=== PATIENT | female | born 1980 | race Caucasian/White ===

== ENCOUNTER 2016-06-27 00:17 | Emergency (ER) | payer MEDICAID ==
[2016-06-27] MEDS ORDERED: Ketorolac 60 MG/2 ML SDV IM ONE (01:01)
--- NOTE | 2016-06-27 01:24 | EDM.PDOC ---
ED HPI LOWER BACK PAIN/INJURY - General Chief Complaint: Flank Pain Stated Complaint: KIDNEY INFICTION Time Seen by Provider: 06/27/16 00:32 Source: Reports: Patient History Limitations: Reports: No limitations - History of Present Illness INITIAL COMMENTS - FREE TEXT/NARRATIVE: 35 years old w f came to the ed with taxi due to left lower back pain. Pt was seen in the clinic last week when she was diagnosed with a bladder infection. Pt was on cipro. Pt denied trauma. Pt is allegic to Motrin and ultram carlson not work. No N/V/D. Pt has Renauds syndrome, Symptom Onset Date: 06/20/16 Symptom Onset Time: 01:25 Timing/Duration: Reports: Day(s): Location: Reports: paraspinal (left) Quality: Reports: Ache, Burning, Same as previous episode Improves with: Reports: None Worsens with: Reports: None Associated Symptoms: Reports: Denies symptoms, Other (cipro) - Related Data Allergies/ADRs: Allergies Allergy/AdvReac Type Severity Reaction Status Date / Time No Known Allergies Allergy Verified 06/27/16 00:25 Home Meds: Home Meds ALPRAZolam [Xanax] 0.5 mg PO BEDTIME PRN #2 tablet 05/24/16 [Rx] Escitalopram [Lexapro] 1 tab PO DAILY 05/24/16 [History] Lurasidone [Latuda] 20 mg PO BEDTIME 05/24/16 [History] QUEtiapine [SEROquel] 1 tab PO DAILY 05/24/16 [History] Past Medical History Genitourinary History: Reports: UTI, recurrent Social & Family History - Tobacco Use Smoking Status *Q: Current Every Day Smoker Years of Tobacco use: 15 Packs/Tins Daily: 1 Used Tobacco, but Quit: No Second Hand Smoke Exposure: Yes - Caffeine Use Caffeine Use: Reports: None - Recreational Drug Use Recreational Drug Use: No ED ROS GENERAL - Review of Systems Review Of Systems: See Below Constitutional: Reports: no symptoms HEENT: Reports: No symptoms Respiratory: Reports: no symptoms Endocrine: Reports: no symptoms GI/Abdominal: Reports: Other (lefty lower back pain) : Reports: no symptoms Musculoskeletal: Reports: no symptoms Skin: Reports: no symptoms Neurological: Reports: no symptoms Hematologic/Lymphatic: Reports: no symptoms Immunologic: Reports: no symptoms ED EXAM,LOWER BACK PAIN/INJURY - Physical Exam Exam: See Below Exam Limited By: No limitations General Appearance: alert, WD/WN, mild distress Ears: normal external exam, normal canal, hearing grossly normal, normal TMs Nose: normal inspection, normal mucosa, no blood Throat/Mouth: Normal inspection, Normal lips, Normal teeth, Normal gums, Normal oropharynx, Normal voice, No airway compromise Head: atraumatic, normocephalic Neck: normal inspection, supple, non-tender, full range of motion Respiratory/Chest: no respiratory distress, lungs clear, normal breath sounds, no accessory muscle use, chest non-tender Cardiovascular: normal peripheral pulses, regular rate, rhythm, no edema, no gallop, no JVD, no murmur, no rub GI/Abdominal: normal bowel sounds, soft, non tender, no organomegaly, no distention, no abnormal bruit, no mass (Female) Exam: Deferred Rectal (Female) Exam: Deferred Back Exam: normal inspection, full range of motion, CVA tenderness (L) Extremities: normal inspection, normal range of motion, non-tender, no pedal edema, normal capillary refill Neurological: alert, normal mood/affect, normal dorsiflexion, CN II-XII intact, normal plantar flexion, normal gait, normal reflexes, no motor/sensory deficits , oriented x 3 Psychiatric: normal affect, normal mood Skin Exam: Warm, Dry, Intact, Normal color, No rash Lymphatic: no adenopathy Course - Vital Signs Text/Narrative:: 35 years old w f came to the ed with taxi due to left lower back pain. Pt was seen in the clinic last week when she was diagnosed with a bladder infection. Pt was on cipro. Pt denied trauma. Pt is allegic to Motrin and ultram carlson not work. No N/V/D. Pt has Renauds syndrome, PE: Nasal congestion Left lower back pain Labs: HCG neg UA neg for UTI Imaging: CT Abd. pelvis neg Tx: Vicodin Reexam: Improved Plan: D/C with instructions Last Recorded V/S: Last Vital Signs Temp 36.8 C 06/27/16 01:29 Pulse 83 06/27/16 01:29 Resp 18 06/27/16 01:29 BP 110/65 06/27/16 01:29 Pulse Ox 100 06/27/16 01:29 - Orders/Labs/Meds Labs: Laboratory Tests 06/27/16 06/27/16 Range/Units 00:26 00:26 Urine Color Yellow (YELLOW) Urine Appearance Slightly cloudy (CLEAR) Urine pH 6.0 (5.0-6.5) Ur Specific [place] 1.015 (1.010-1.025) Urine Protein Negative (NEGATIVE) mg/dL Urine Glucose (UA) Normal (NEGATIVE) mg/dL Urine Ketones Negative (NEGATIVE) mg/dL Urine Occult Blood Negative (NEGATIVE) Urine Nitrite Negative (NEGATIVE) Urine Bilirubin Negative (NEGATIVE) Urine Urobilinogen Normal (NEGATIVE) mg/dL Ur Leukocyte Esterase Negative (NEGATIVE) Urine RBC 0-5 (0) Urine WBC 0-5 (0) Ur Squamous Epith Cells Moderate H (NS,R,O) Urine Bacteria Moderate H (NS) Urine HCG, Qual Negative (NEGATIVE) Meds: Medications Discontinued Medications Generic Name Dose Route Start Last Admin Trade Name Freq PRN Reason Stop Dose Admin Ketorolac Tromethamine 60 mg 06/27/16 01:01 06/27/16 01:11 Toradol IM 06/27/16 01:02 60 mg ONETIME ONE Administration Departure - Departure Time of Disposition: 01:32 Disposition: Home, Self-Care 01 Condition: good Clinical Impression: Back pain Referrals: PCP,None [Primary Care Provider] - Forms: ED Department Discharge Additional Instructions: please take Vicodin for severe pain. please f/u, please came back to the ed if symptoms get worse acutely
[2016-06-27] MEDS ORDERED: Acetaminophen/HYDROcodone 325-5 MG Tab PO ONE (01:27)
[2016-06-27 01:30] VITALS: BP 110/65
== END 2016-06-27 01:35 | disposition home or self-care (01) ==
LOC: FB.ED 00:17
DX: M54.5 Low back pain (principal); F17.210 Nicotine dependence, cigarettes, uncomplicated; Z79.899 Other long term (current) drug therapy
CPT/HCPCS: 74176; 81001; 81025; 96372; 99284; J1885; A9270-GY

== ENCOUNTER 2016-11-30 20:23 | Emergency (ER) | payer MEDICAID ==
[2016-11-30] MEDS ORDERED: Meperidine PF 50 MG/ML Syringe IM ONE (21:06)
[2016-11-30] MEDS ORDERED: Cyclobenzaprine 10 MG Tab PO ONE (21:35)
[2016-11-30] MEDS ORDERED: Acetaminophen/Codeine 300-30 MG Tab PO ONE (21:35)
[2016-11-30 23:49] VITALS: BP 116/75
--- NOTE | 2016-12-01 01:51 | ER ---
DATE SEEN: 11/30/2016 CHIEF COMPLAINT: Back pain. HISTORY OF PRESENT ILLNESS: Harper is a 36-year-old female with chronic back pain. She presents with pain that started 2 days ago, feels like it is radiating to the sacrum moderate to severe, nothing seems to help. She has had an injection to the lower lumbar spine joints with no improvement previously. REVIEW OF SYSTEMS: No weakness of the legs. No urinary symptoms. No recent fever or chills. ALLERGIES: She complains of being allergic to Toradol and ibuprofen. MEDICATIONS: Seroquel, Latuda, Lexapro, and Xanax. PHYSICAL EXAMINATION: GENERAL: She is a well-nourished female, who is not in distress. VITAL SIGNS: She has normal vital signs. BACK: Low back did not show any signs of deformity. There was tenderness to palpation of the sacral spine and SI joint. Normal range of motion of the hip and normal gait and station. IMPRESSION: Chronic back pain with acute exacerbation. PLAN: Demerol 50 mg x1 and then I prescribed Tylenol No. 3 one tablet t.i.d. p.r.n. and 10 mg of Flexeril at night. I recommended she be seen next week and return to the ED with any worsening symptoms. TIME SEEN: 8 p.m. /[id number] TONY/GENI
== END 2016-11-30 21:45 | disposition home or self-care (01) ==
LOC: FB.ED 20:23
DX: M54.5 Low back pain (principal); G89.29 Other chronic pain
CPT/HCPCS: 96372; 99282; J2175; A9270-GY

== ENCOUNTER 2016-12-05 21:15 | Emergency (ER) | payer MEDICAID ==
[2016-12-05] MEDS ORDERED: HYDROmorphone 2 MG/ML SDV IM ONE (21:39)
[2016-12-05] MEDS ORDERED: HYDROmorphone 2 MG/ML SDV IVPUSH ONE (21:45)
[2016-12-05 22:19] VITALS: BP 97/61
--- NOTE | 2016-12-06 00:51 | ER ---
DATE SEEN: 12/05/2016 COMPLAINT: Back pain. HISTORY OF PRESENT ILLNESS: This is a 36-year-old female with a chronic back pain. I saw her last week for the same symptoms. She was in the ER on the 11/29/2016 in [place] because of tooth pain. She has exhibited pain seeking behavior in the past. I saw her in the clinic in June for a wrist pain and wanted narcotics. Her pain is in the back, she says it goes down the leg, has been seen at the [facility] and offered nerve blocks which did not help. She does not want to go through with the epidural injection. REVIEW OF SYSTEMS: No fever or urinary symptoms. Denies any weakness of the legs. MEDICATIONS: Please see the nurse's notes. ALLERGIES: She is allergic to ibuprofen, ketorolac and banana. PHYSICAL EXAMINATION: VITAL SIGNS: Her blood pressure is 84/49, she weighs 115 pounds. Temperature 98.1. LOWER BACK: No obvious swelling. There is tenderness on the right and left buttock and the paraspinal muscle in the lumbar area. MENTAL STATUS: Alert. Normal affect. The or fiancee talks for her mostly. IMPRESSION: Chronic back pain. PLAN: I reviewed the [place] chart and noted that she had been seen in the ER on 11/29/2016, also noted she had an MRI in 2014 for back pain and has been going to the Pain [facility]. I gave her Dilaudid 1 mg IM. I advised her to have an MRI next week and follow up next week with PCP or with the Pain [facility]. I did not send her home on any oral narcotics. /[id number] TONY/GENI
== END 2016-12-05 22:15 | disposition home or self-care (01) ==
LOC: FB.ED 21:15
DX: G89.29 Other chronic pain (principal); M54.5 Low back pain; Z88.6 Allergy status to analgesic agent
CPT/HCPCS: 96374; 99283; J1170

== ENCOUNTER 2016-12-08 18:16 | Emergency (ER) | payer MEDICAID ==
[2016-12-08 18:37] VITALS: BP 118/81
[2016-12-08] MEDS ORDERED: Metoclopramide 10 MG/2 ML SDV IM ONE (19:13)
[2016-12-08] MEDS ORDERED: hydrOXYzine HCl 50 MG/ML SDV IM ONE (19:13)
[2016-12-08] MEDS ORDERED: diphenhydrAMINE 50 MG/ML SDV IM ONE (19:14)
--- NOTE | 2016-12-13 11:20 | ER ---
DATE SEEN: 12/08/2016 HISTORY OF PRESENT ILLNESS: The patient complains that she is not getting much relief from medicines she got for back pain. She was seen on , on the for chronic low back pain, and has an MRI scheduled for tomorrow 12/09/2016. She also was seen 11/29/2016 at [facility] for tooth pain. There is a note that she has tendency to seek pain medicine. The patient states, until a week ago, she was lifting weight and was active. She is asthenic woman. She had an MRI in 2014 also. ALLERGIES: She is allergic to Toradol and ibuprofen. She has had a shot of Demerol, Tylenol No. 3, and Flexeril prescribed on , the last clinic date by Dr. Mckeon. She said I got relief, but the pain does came back. The patient points to the right sacroiliac joint, which is greater than left sacroiliac joint, has less discomfort in the lumbar bones. She has moderate superior iliac crest discomfort to the right compared to the left. Straight leg raise is suggestive but not overtly positive on the right or left leg. No dysesthesia in lower extremities. Deep tendon reflexes, knee jerks, ankle jerks are in place. No hypoesthesia of lower extremities. She is asthenic woman, who has decreased subcutaneous fat and quite thin. Abdominal exam is without tenderness. No guarding or rebound. Lungs are clear to auscultation. Heart: S1, S2. No murmur. Abdomen is negative. Chest wall is negative. She has multiple piercings. Deep tendon reflexes in upper and lower extremities symmetrical 1+ normoactive. Cranial nerves 2 through 12 intact. No dysesthesia in lower extremities. ASSESSMENT: Bilateral right greater than left sacroiliac joint discomfort. She has an MRI to be performed tomorrow. If she has arthritis, make sure to open this, but otherwise I think clinically could be injected. As a person who has had sacroiliac joint injections, it is instrumental and helpful, and perhaps Dr. Mckeon would be able arrange this and/or patient arrange it through the [facility]. At this point, I am not impressed with the history that she had epidurals that apparently have not been effective for her. I await the results of the MRI before making judgement regarding degenerative disk disease and/or degenerative disease or apophyseal abnormalities. She is quite young and asthenic, so it would seem low probability she had significant disk disease at this point. On 06/27/2016, she had CT of the abdomen and pelvis without contrast, and there was minimal basilar lung atelectasis/fibrosis, vascular structures normal, bones showed mild degenerative disease in lumbosacral junction. No acute abnormality noted. IUD within uterus noted. 1. Before making judgment of the extent of lower back disease at this point, I will await MRI. 2. She has sacroiliac joint pain right greater than left. Injection would be helpful. Pain Clinic could do this nicely. 3. Plan, the patient is "allergic to Toradol and ibuprofen", consequently will be given a shot of Vistaril and Reglan and dismissed with Robaxin 750 mg 60 tablets 1 q.i.d. p.r.n. spasm. I chose not to use narcotics, and the patient is made aware that I was worried about her narcotic rebound effect. Also it is interesting that she was weightlifting until a week or so ago, so my feeling is it is probably not disk disease, there have been annotations that perhaps she was seeking pain medicines, and at this point, she was comfortable with the plan that I am not using narcotics this evening. That was gratifying. The patient was seen at 1848 hours. /[id number] KENDELL/GENI
== END 2016-12-08 19:45 | disposition home or self-care (01) ==
LOC: FB.ED 18:16
DX: M53.3 Sacrococcygeal disorders, not elsewhere classified (principal); Z88.6 Allergy status to analgesic agent
CPT/HCPCS: 99283; J1200; J2765; 96372

== ENCOUNTER 2017-01-02 16:19 | Emergency (ER) | payer MEDICAID ==
--- NOTE | 2017-01-02 17:24 | EDM.PDOC ---
ED HPI GENERAL MEDICAL PROBLEM - General Chief Complaint: Back Pain or Injury Stated Complaint: BACK PAIN Time Seen by Provider: 01/02/17 17:00 Source of Information: Reports: Patient History Limitations: Reports: No Limitations - History of Present Illness INITIAL COMMENTS - FREE TEXT/NARRATIVE: Harper comes to [facility] ED with ongoing issues of chronic low back pain. 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 Pain originates in the lower back adjacent to pelvic brim, with some numbness in both legs. Analgesic meds including Lyrica have been ineffective. - Related Data Allergies Allergy/AdvReac Type Severity Reaction Status Date / Time banana Allergy Nausea and Verified 12/08/16 19:59 Vomiting ibuprofen Allergy Rash Verified 12/08/16 19:59 ketorolac [From Toradol] Allergy Rash Verified 12/08/16 19:59 Home Meds: Home Meds ALPRAZolam [Xanax] 0.5 mg PO BEDTIME PRN #2 tablet 05/24/16 [Rx] Escitalopram [Lexapro] 1 tab PO DAILY 05/24/16 [History] Lurasidone [Latuda] 40 mg PO BEDTIME 05/24/16 [History] QUEtiapine [SEROquel] 2 tab PO DAILY 05/24/16 [History] Acetaminophen [Tylenol] 325 tab PO Q4HR PRN 11/30/16 [History] Albuterol [IJD: Albuterol HFA] 1 puff INH ASDIRECTED 11/30/16 [History] Dextroamphetamine/Amphetamine [Adderall Xr 30 mg Capsule] 1 tab PO DAILY [History] Fluticasone Propionate [Flonase] 1 spray DEANA ASDIRECTED 11/30/16 [History] Gabapentin [Neurontin] 3 cap PO DAILY 11/30/16 [History] Loratadine [Claritin] 1 tab PO ASDIRECTED 11/30/16 [History] lamoTRIgine [Lamictal] 1 tab PO DAILY 11/30/16 [History] Methocarbamol [Robaxin-750] 750 mg PO QID PRN #60 tablet 12/08/16 [Rx] Carisoprodol [Soma] 250 mg PO QID #30 tablet 01/02/17 [Rx] Past Medical History HEENT History: Reports: Other (See Below) Other HEENT History: Patient reports taking Claritin and Flonase. Respiratory History: Reports: Other (See Below) Other Respiratory History: Patient reports taking Albuterol. 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 Patient reports taking Gabapentin. Neurological History: Reports: Other (See Below) Psychiatric History: Reports: Other (See Below) Other Psychiatric History: Patient reports taking Adderall, Latuda, and Seroquel. - Past Surgical History Musculoskeletal Surgical History: Reports: Other (See Below) Other Musculoskeletal Surgeries/Procedures:: Patient reports having injections to her back and a surgery to repair a broken wrist. Social & Family History - Tobacco Use Smoking Status *Q: Current Every Day Smoker Years of Tobacco use: 15 Packs/Tins Daily: 1 Used Tobacco, but Quit: No Second Hand Smoke Exposure: Yes - Caffeine Use Caffeine Use: Reports: None - Recreational Drug Use Recreational Drug Use: No ED ROS GENERAL - Review of Systems Review Of Systems: ROS reveals no pertinent complaints other than HPI. ED EXAM,LOWER BACK PAIN/INJURY - Physical Exam Exam: See Below Exam Limited By: No Limitations General Appearance: Alert, WD/WN, No Apparent Distress Head: Normocephalic Neck: Normal Inspection, Supple, Non-Tender, Full Range of Motion Respiratory/Chest: Lungs Clear, Normal Breath Sounds Cardiovascular: Regular Rate, Rhythm GI/Abdominal: Normal Bowel Sounds, Soft, Non-Tender, No Organomegaly, No Distention Back Exam: Paraspinal Tenderness (L5 to SI joints, neg SN tenderness; guarded with movement) Extremities: Normal Inspection, Normal Range of Motion, Non-Tender, Normal Capillary Refill Neurological: Alert, Normal Dorsiflexion, CN II-XII Intact, Normal Plantar Flexion, Normal Reflexes, No Motor/Sensory Deficits, Oriented x 3 Psychiatric: Depressed Mood, Tearful Skin Exam: Warm, Dry Lymphatic: No Adenopathy Course - Vital Signs Text/Narrative:: Harper remained stable at the [facility] ED. No meds were administered. Departure - Departure Time of Disposition: 17:26 Disposition: Home, Self-Care 01 Condition: Fair Clinical Impression: Back pain Qualifiers: Back pain location: low back pain Chronicity: chronic Back pain laterality: bilateral Sciatica presence: without sciatica Qualified Code(s): M54.5 - Low back pain; G89.29 - Other chronic pain - Discharge Information Referrals: PCP,Not In Area [Primary Care Provider] - Forms: ED Department Discharge - Problem List & Annotations (1) Back pain SNOMED Code(s): 844949606 Code(s): M54.9 - DORSALGIA, UNSPECIFIED Status: Acute Current Visit: Yes Annotation/Comment:: Chronic low back, awaiting appointment with channel marketing specialist. I dispensed Soma 250 mg qid pending appointment. Qualifiers: Back pain location: low back pain Chronicity: chronic Back pain laterality: bilateral Sciatica presence: without sciatica Qualified Code(s) : M54.5 - Low back pain; G89.29 - Other chronic pain - Problem List Review Problem List Initiated/Reviewed/Updated: Yes - Assessment/Plan Plan: Follow up with channel marketing specialist.
[2017-01-02 19:51] VITALS: BP 104/71
== END 2017-01-02 17:40 | disposition home or self-care (01) ==
LOC: FB.ED 16:19
DX: M54.5 Low back pain (principal); G89.29 Other chronic pain; M19.90 Unspecified osteoarthritis, unspecified site; F17.210 Nicotine dependence, cigarettes, uncomplicated; Z87.440 Personal history of urinary (tract) infections; Z98.890 Other specified postprocedural states; Z79.899 Other long term (current) drug therapy; Z88.6 Allergy status to analgesic agent; Z88.8 Allergy status to other drugs, medicaments and biological substances; Z91.018 Allergy to other foods
CPT/HCPCS: 99283

== ENCOUNTER 2017-01-11 10:05 | Emergency (ER) | payer MEDICAID ==
[2017-01-11] MEDS ORDERED: Sodium Chloride 0.9% 1,000 ML IV ONE (12:04)
[2017-01-11] MEDS ORDERED: Ondansetron 4 MG/2 ML SDV IVPUSH ONE (12:05)
[2017-01-11] MEDS ORDERED: methylPREDNISolone Sodium Succinate 500 MG/4 ML SDV IVPUSH ONE (12:05)
[2017-01-11] MEDS ORDERED: diphenhydrAMINE 50 MG/ML SDV IVPUSH ONE (12:06)
[2017-01-11] MEDS ORDERED: methylPREDNISolone Sodium Succinate 125 MG/2 ML SDV ONE ×2 (12:29→12:39)
[2017-01-11] MEDS ORDERED: traMADol 50 MG Tab PO ONE (13:38)
[2017-01-11] MEDS ORDERED: predniSONE 10 MG Tab PO ONE (13:38)
--- NOTE | 2017-01-11 14:35 | EDM.PDOC ---
ED HPI GENERAL MEDICAL PROBLEM - General Chief Complaint: Back Pain or Injury Stated Complaint: BACK PAIN Time Seen by Provider: 01/11/17 10:25 Source of Information: Reports: Patient, Family History Limitations: Reports: No Limitations - History of Present Illness INITIAL COMMENTS - FREE TEXT/NARRATIVE: Patient is a 36 year old woman with chronic low back pain who is having another exacerbation of the pain. She also is having one of her typical migraine headaches. She is working with a pain management center but her current medication regimen is not taking either her headache or back pain away. No new trauma to the back, no fever or chills and no loss of bowel or bladder control. 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, Other Medication(s) - Related Data Allergies Allergy/AdvReac Type Severity Reaction Status Date / Time banana Allergy Nausea and Verified 01/02/17 19:56 Vomiting ibuprofen Allergy Rash Verified 01/02/17 19:56 ketorolac [From Toradol] Allergy Rash Verified 01/02/17 19:56 Home Meds: Home Meds ALPRAZolam [Xanax] 0.5 mg PO BEDTIME PRN #2 tablet 05/24/16 [Rx] Lurasidone [Latuda] 40 mg PO BEDTIME 05/24/16 [History] QUEtiapine [SEROquel] 2 tab PO DAILY 05/24/16 [History] Acetaminophen [Tylenol] 325 tab PO Q4HR PRN 11/30/16 [History] Albuterol [IJD: Albuterol HFA] 1 puff INH ASDIRECTED 11/30/16 [History] Dextroamphetamine/Amphetamine [Adderall Xr 30 mg Capsule] 1 tab PO DAILY [History] Fluticasone Propionate [Flonase] 1 spray DEANA ASDIRECTED 11/30/16 [History] Loratadine [Claritin] 1 tab PO ASDIRECTED 11/30/16 [History] lamoTRIgine [Lamictal] 1 tab PO DAILY 11/30/16 [History] Carisoprodol [Soma] 250 mg PO QID #30 tablet 01/02/17 [Rx] Past Medical History HEENT History: Reports: Other (See Below) Other HEENT History: Patient reports taking Claritin and Flonase. Respiratory History: Reports: Other (See Below) Other Respiratory History: Patient reports taking Albuterol. 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 Patient reports taking Gabapentin. Neurological History: Reports: Other (See Below) Psychiatric History: Reports: Other (See Below) Other Psychiatric History: Patient reports taking Adderall, Latuda, and Seroquel. - Past Surgical History Musculoskeletal Surgical History: Reports: Other (See Below) Other Musculoskeletal Surgeries/Procedures:: Patient reports having injections to her back and a surgery to repair a broken wrist. Social & Family History - Tobacco Use Smoking Status *Q: Current Every Day Smoker Years of Tobacco use: 15 Packs/Tins Daily: 1 Used Tobacco, but Quit: No Second Hand Smoke Exposure: Yes - Caffeine Use Caffeine Use: Reports: None - Recreational Drug Use Recreational Drug Use: No ED ROS GENERAL - Review of Systems Review Of Systems: See Below Constitutional: Reports: No Symptoms HEENT: Reports: Other (Headache.) Respiratory: Reports: No Symptoms Cardiovascular: Reports: No Symptoms Endocrine: Reports: No Symptoms GI/Abdominal: Reports: No Symptoms : Reports: No Symptoms Musculoskeletal: Reports: Back Pain Skin: Reports: No Symptoms Neurological: Reports: Headache Psychiatric: Reports: No Symptoms Hematologic/Lymphatic: Reports: No Symptoms Immunologic: Reports: No Symptoms ED EXAM,LOWER BACK PAIN/INJURY - Physical Exam Exam: See Below Exam Limited By: No Limitations General Appearance: Alert, WD/WN, No Apparent Distress Eye Exam: Bilateral Eye: EOMI, Normal Fundi, Normal Inspection, PERRL Ears: Normal External Exam Nose: Normal Inspection Throat/Mouth: Normal Inspection Head: Atraumatic, Normocephalic Neck: Normal Inspection, Supple, Non-Tender, Full Range of Motion Respiratory/Chest: No Respiratory Distress, Lungs Clear, Normal Breath Sounds, No Accessory Muscle Use, Chest Non-Tender Cardiovascular: Normal Peripheral Pulses GI/Abdominal: Normal Bowel Sounds, Soft, Non-Tender, No Organomegaly, No Distention, No Abnormal Bruit, No Mass Back Exam: Decreased Range of Motion, Muscle Spasm, Paraspinal Tenderness Extremities: Normal Inspection, Normal Range of Motion, Non-Tender, No Pedal Edema, Normal Capillary Refill Neurological: Alert, Normal Mood/Affect, Normal Dorsiflexion, CN II-XII Intact, Normal Plantar Flexion, Normal Gait, Normal Reflexes, No Motor/Sensory Deficits , Oriented x 3, Other (See recent MRI report.) Psychiatric: Normal Affect, Normal Mood Skin Exam: Warm, Dry, Intact, Normal Color, No Rash Lymphatic: No Adenopathy Course - Vital Signs Text/Narrative:: Uneventful ED course she did get relief from her Headache pain with 1 liter of normal saline, 250 mg of IV solumedrol, 4 mg of IV Zofran and 50 mg of IV Benedryl. She will continue her home meds and I gave her Prednisone 40 mg po q day the next two days and Tramadol 50 mg po q 4 hours, #8, no refills. She will follow up with her PCP and her pain management clinic next week and will return to the ED if she needs to. - Orders/Labs/Meds Orders: Active Orders 24 hr Category Date Time Status Head wo Cont [CT] Stat Exams 01/11/17 10:34 Taken Labs: Laboratory Tests 01/11/17 01/11/17 Range/Units 11:00 11:00 WBC 9.2 (4.5-12.0) X10-3/uL RBC 3.66 (3.23-5.20) x10(6)uL Hgb 11.8 (11.5-15.5) g/dL Hct 34.4 (30.0-51.3) % MCV 94.0 (80-96) fL MCH 32.3 (27.7-33.6) pg MCHC 34.4 (32.2-35.4) g/dL RDW 12.2 (11.5-15.5) % Plt Count 310 (125-369) X10(3)uL MPV 8.2 (7.4-10.4) fL Neut % (Auto) 61.5 (46-82) % Lymph % (Auto) 23.1 (13-37) % Lincoln % (Auto) 6.1 (4-12) % Eos % (Auto) 9 H (1.0-5.0) % Baso % (Auto) 1 (0-2) % Neut # (Auto) 5.7 (1.6-8.3) # Lymph # (Auto) 2.1 (0.6-5.0) # Lincoln # (Auto) 0.6 (0.0-1.3) # Eos # (Auto) 0.8 (0.0-0.8) # Baso # (Auto) 0.0 (0.0-0.2) # Sodium 140 (135-145) mmol/L Potassium 3.4 L (3.5-5.3) mmol/L Chloride 106 (100-110) mmol/L Carbon Dioxide 28 (23-29) mmol/L BUN 17 D (5-20) mg/dL Creatinine 0.6 (0.6-1.3) mg/dL Est Cr Clr Drug Dosing TNP Estimated GFR (MDRD) > 60 (>60) BUN/Creatinine Ratio 28.3 H (9-20) Glucose 73 L (80-116) mg/dL Calcium 8.6 (8.6-10.2) mg/dL Total Bilirubin 0.4 (0.1-1.3) mg/dL AST 19 (5-27) IU/L ALT 14 (14-26) IU/L Alkaline Phosphatase 59 (56-112) IU/L Total Protein 5.6 L (6.0-8.0) g/dL Albumin 3.5 (3.5-5.2) g/dL Globulin 2.1 g/dL Albumin/Globulin Ratio 1.7 Meds: Medications Discontinued Medications Generic Name Dose Route Start Last Admin Trade Name Freq PRN Reason Stop Dose Admin Diphenhydramine HCl 50 mg 01/11/17 12:06 01/11/17 12:34 Benadryl IVPUSH 01/11/17 12:07 50 mg ONETIME ONE Administration Sodium Chloride 1,000 mls @ 1,000 mls/hr 01/11/17 12:04 01/11/17 12:20 Normal Saline IV 01/11/17 13:03 1,000 mls/hr .BOLUS ONE Administration Methylprednisolone Sodium Succinate 250 mg 01/11/17 12:05 01/11/17 12:35 Solu-Medrol IVPUSH 01/11/17 12:06 250 mg ONETIME ONE Administration Methylprednisolone Sodium Succinate Confirm 01/11/17 12:29 01/11/17 12:36 Solu-Medrol Administered 01/11/17 12:30 Not Given Dose 125 mg .ROUTE .STK-MED ONE Methylprednisolone Sodium Succinate Confirm 01/11/17 12:39 Solu-Medrol Administered 01/11/17 12:40 Dose 125 mg .ROUTE .STK-MED ONE Ondansetron HCl 4 mg 01/11/17 12:05 01/11/17 12:34 Zofran IVPUSH 01/11/17 12:06 4 mg ONETIME ONE Administration Departure - Departure Time of Disposition: 13:50 Disposition: Home, Self-Care 01 Condition: Good Clinical Impression: Chronic back pain greater than 3 months duration, Migraine headache - Discharge Information Referrals: PCP,None [Primary Care Provider] - Forms: ED Department Discharge Care Plan Goals: Follow up with regular on Friday Tramadol 1 tab every 4 hours as needed for pain Prednisone 4 tabs daily - My Orders Last 24 Hours: My Active Orders 01/11/17 10:34 Head wo Cont [CT] Stat - Assessment/Plan Last 24 Hours: My Active Orders 01/11/17 10:34 Head wo Cont [CT] Stat
[2017-01-11 17:10] VITALS: BP 114/50
--- NOTE | 2017-01-13 16:41 | CT ---
INDICATION: Pelvic pain, frequency x2 weeks, bladder gets full and pain radiates to back. CT ABDOMEN AND PELVIS WITH CONTRAST AND WITHOUT CONTRAST WITH CT UROGRAM: Spiral 2.5-mm axial sections were initially obtained through the abdomen and pelvis without IV contrast, but with oral contrast and then repeated with 96 mL Isovue-370 at 2 mL per second through the abdomen at 90 seconds, and then with a 6-minute delay through the abdomen and pelvis. Sagittal and coronal reconstructions were utilized. Examination was obtained 01/13/2017 and is compared with 02/05/2012. Total Exam DLP = 2105.58 mGy-cm. The lower lung frederick and pleural spaces visualized appeared normal. The heart appeared normal in size. The liver is decreased in density, compatible with fatty infiltration. The appendix appeared normal and is well visualized on axial images #105 through #116. No evidence of bowel obstruction or free air was seen. A tiny inguinal hernia may be present on the left, including only fat. The urinary bladder had a normal appearance. The prostate appears unchanged and measured approximately 33 x 44 mm in anterior and transverse diameters, by approximately 35 mm craniocaudad diameter. No retroperitoneal masses were identified. A low-density lesion is noted in the left adrenal. It is low in density and is compatible with a benign adenoma. The right adrenal was unremarkable as were the kidneys. No retroperitoneal masses were identified. The spleen and the pancreas appear normal. Pyelocaliceal systems and visualized portions of the ureters - in their entirety - appeared normal. The urinary bladder had a normal appearance with no wall thickening. No urinary bladder mass lesions could be identified. No impingement on the floor of the urinary bladder by the prostate is present. No evidence of obstructive uropathy, renal mass lesions, or definite calculi could be identified. IMPRESSION: 1. Fatty infiltration of the liver - hepatic steatosis. 2. No evidence of urinary bladder abnormality with prostate minimally prominent in size and not impinging on the floor of the urinary bladder. 3. Normal CT urogram. 4. Left inguinal hernia, including only fat, of a very tiny size is suggested. It is of questionable significance - correlate clinically. CT PELVIS: Examination of the pelvis was obtained by CT, as noted above, and revealed no significant organomegaly, mass lesions, or free fluid collections. No significant abnormalities were identified except to suggest the possibility of a small left inguinal hernia, including only fat. Report was called to Dr. Mckeon at 1447 hours, 01/13/2017. [facility]
== END 2017-01-11 13:45 | disposition home or self-care (01) ==
LOC: FB.ED 10:05
DX: M54.5 Low back pain (principal); G89.29 Other chronic pain; G43.909 Migraine, unspecified, not intractable, without status migrainosus; M19.90 Unspecified osteoarthritis, unspecified site; F17.210 Nicotine dependence, cigarettes, uncomplicated; Z91.018 Allergy to other foods; Z88.6 Allergy status to analgesic agent; Z88.5 Allergy status to narcotic agent; Z79.899 Other long term (current) drug therapy; Z87.440 Personal history of urinary (tract) infections
CPT/HCPCS: 36415; 70450; 80053; 85025; 96361; 96374; 96375; 99284; J1200; J2405; J2930; J7040; A9270-GY

== ENCOUNTER 2017-03-29 01:24 | Emergency (ER) | payer MEDICAID ==
[2017-03-29] MEDS ORDERED: Bupivacaine 0.5% 30 ML SDV INFILT ONE (01:25)
--- NOTE | 2017-03-29 01:34 | EDM.PDOC ---
ED HPI GENERAL MEDICAL PROBLEM - General Chief Complaint: Laceration Stated Complaint: LACERATION LT HAND Time Seen by Provider: 03/29/17 01:24 Source of Information: Reports: Patient History Limitations: Reports: No Limitations - History of Present Illness INITIAL COMMENTS - FREE TEXT/NARRATIVE: 36 years old w f came to the ed after she cut in her left hand with a kitchen knife by accident on the base of her left 2nd finger dorsal aspect. 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 No other acute medical issues. No loss of function. Onset: Today Onset Date: 03/29/17 Onset Time: 00:05 Duration: Minutes:, Intermittent Location: Reports: Upper Extremity, Left Severity: Moderate Improves with: Reports: Rest Worsens with: Reports: Movement Context: Reports: Trauma Associated Symptoms: Reports: No Other Symptoms L hand Pain Score (Numeric/FACES): 8 - Related Data Allergies Allergy/AdvReac Type Severity Reaction Status Date / Time banana Allergy Nausea and Verified 03/29/17 01:32 Vomiting ibuprofen Allergy Rash Verified 03/29/17 01:32 ketorolac [From Toradol] Allergy Rash Verified 03/29/17 01:32 Home Meds: Home Meds Lurasidone [Latuda] 40 mg PO BEDTIME 05/24/16 [History] QUEtiapine [SEROquel] 100 tab PO BEDTIME 05/24/16 [History] Acetaminophen [Tylenol] 4 tab PO Q4HR PRN 11/30/16 [History] Dextroamphetamine/Amphetamine [Adderall Xr 30 mg Capsule] 30 mg PO BID 11/30/16 [History] Fluticasone Propionate [Flonase] 1 spray DEANA ASDIRECTED 11/30/16 [History] Loratadine [Claritin] 1 tab PO ASDIRECTED 11/30/16 [History] lamoTRIgine [Lamictal] 1 tab PO DAILY 11/30/16 [History] ALPRAZolam [Xanax] 1 mg PO QID 03/29/17 [History] Amoxicillin/Potassium Clav [Augmentin 875-125 Tablet] 1 each PO BID #20 tablet 03/29/17 [Rx] Dextroamphetamine/Amphetamine [Adderall] 30 mg PO 1400 03/29/17 [History] Prazosin [Minpress] 1 mg PO QID 03/29/17 [History] Pregabalin [Lyrica] 150 mg PO TID 03/29/17 [History] Past Medical History HEENT History: Reports: Other (See Below) Other HEENT History: Patient reports taking Claritin and Flonase. Respiratory History: Reports: Other (See Below) Other Respiratory History: Patient reports taking Albuterol. 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 Patient reports taking Gabapentin. Neurological History: Reports: Other (See Below) Psychiatric History: Reports: Other (See Below) Other Psychiatric History: Patient reports taking Adderall, Latuda, and Seroquel. - Past Surgical History Musculoskeletal Surgical History: Reports: Other (See Below) Other Musculoskeletal Surgeries/Procedures:: Patient reports having injections to her back and a surgery to repair a broken wrist. Social & Family History - Tobacco Use Smoking Status *Q: Current Every Day Smoker Years of Tobacco use: 15 Packs/Tins Daily: 1 Used Tobacco, but Quit: No Second Hand Smoke Exposure: Yes - Caffeine Use Caffeine Use: Reports: None - Recreational Drug Use Recreational Drug Use: No Review of Systems - Review of Systems Review Of Systems: See Below Constitutional: Reports: No Symptoms Eyes: Reports: No Symptoms Ears: Reports: No Symptoms Nose: Reports: No Symptoms Mouth/Throat: Reports: No Symptoms Respiratory: Reports: No Symptoms Cardiovascular: Reports: No Symptoms GI/Abdominal: Reports: No Symptoms Genitourinary: Reports: No Symptoms Musculoskeletal: Reports: No Symptoms Skin: Reports: Wound (left hand) Neurological: Reports: No Symptoms Psychiatric: Reports: No Symptoms ED EXAM, GENERAL - Physical Exam Exam: See Below Exam Limited By: No Limitations General Appearance: Alert, WD/WN, No Apparent Distress Eye Exam: Bilateral Eye: Normal Inspection Ears: Normal External Exam Ear Exam: Bilateral Ear: Auricle Normal Nose: Normal Inspection, Normal Mucosa, No Blood Throat/Mouth: Normal Inspection, Normal Lips Head: Atraumatic, Normocephalic Neck: Normal Inspection, Supple, Non-Tender, Full Range of Motion Respiratory/Chest: No Respiratory Distress, Lungs Clear, Normal Breath Sounds Cardiovascular: Normal Peripheral Pulses, Regular Rate, Rhythm, No Edema, No Gallop Peripheral Pulses: 1+: Radial (L), Radial (R) GI/Abdominal: Normal Bowel Sounds, Soft, Non-Tender (Female) Exam: Deferred Rectal (Female) Exam: Deferred Back Exam: Normal Inspection, Full Range of Motion Extremities: Other (Laceration left hand) Neurological: Alert, Oriented, CN II-XII Intact, Normal Cognition, Normal Gait, No Motor/Sensory Deficits Psychiatric: Normal Affect, Normal Mood Skin Exam: Warm, Dry, Other (left hand) Lymphatic: No Adenopathy ED TRAUMA EXTREMITY PROCEDURES - Laceration/Wound Repair Left Posterior Hand Lac/Wound Length In cm: 1.3 (prox, dorsal left 2nd finger ) Appearance: Mildly Contaminated Distal NVT: Neuro & Vascular Intact, No Tendon Injury Anesthetic Type: Local Local Anesthesia - Bupivicaine (Marcaine): 0.5% Plain Local Anesthetic Volume: 3cc Skin Prep: Chlorhexidine (Hibiciens) Saline Irrigation (cc's): 3 Exploration/Debridement/Repair: Wound Explored, In a Bloodless Field, Explored to Base Suture Size: 4-0 # of Sutures: 3 Suture Type: Interrupted, Other (ethilon) Sterile Dressing Applied: Nurse Tetanus Status Addressed: Other (will get Tdap today) Complications: No Course - Vital Signs Text/Narrative:: 36 years old piero thorne came to the ed after she cut in her left hand with a kitchen knife by accident on the base of her left 2nd finger dorsal aspect. 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 No other acute medical issues. No loss of function. BP 109/76 pulse 85 Temp 36.5 o2 sat 100% PE: Laceration left 2nd finger, proximal, dorsal, FROM Procedure: Please see note above Impression: LAC left prox 2nd finger Tx: Wound repair, Abx, dressing, Tetanus booster Reexam: Improved Plan: D/C with instructions Last Recorded V/S: Last Vital Signs Temp 36.5 C 03/29/17 01:24 Pulse 89 03/29/17 01:24 Resp 18 03/29/17 02:15 BP 107/58 L 03/29/17 02:15 Pulse Ox 100 03/29/17 02:15 - Orders/Labs/Meds Orders: Active Orders 24 hr Category Date Time Status Vaccines to be Administered [RC] PER UNIT ROUTINE Care 03/29/17 01:51 Active 36 years old w f came to the ed after she cut in her left hand with a kitchen knife by accident on the base of her left 2nd finger dorsal aspect. 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 No other acute medical issues. No loss of function. PE: Laceration prox phalanx 2nd finger left hand dorsal aspect. FROM Procedure: Please see note above Impression: LAC left 2nd finger Tx: wound repair, Abx, dressing Reexam: Improved Plan: D/C with instructions Meds: Medications Discontinued Medications Generic Name Dose Route Start Last Admin Trade Name [place] PRN Reason Stop Dose Admin Amoxicillin/Clavulanate Potassium 1 tab 03/29/17 01:51 03/29/17 02:07 Augmentin 875 Mg/125 Mg PO 03/29/17 01:52 1 tab ONETIME ONE Administration Diphtheria/Tetanus/Acell Pertussis 0.5 ml 03/29/17 01:51 03/29/17 02:13 Adacel IM 03/29/17 01:52 0.5 ml .ONCE ONE Administration Departure - Departure Time of Disposition: 02:05 Disposition: Home, Self-Care 01 Condition: Good Clinical Impression: Laceration - Discharge Information Prescriptions: Amoxicillin/Potassium Clav [Augmentin 875-125 Tablet] 1 each PO BID #20 tablet Instructions: VIS, Diphtheria, Tetanus, and Pertussis (DTaP) - CDC, Sutured Wound Care, [id number] Referrals: Melquiades Perez MD [Primary Care Provider] - Forms: ED Department Discharge Additional Instructions: Please apply pressure to wound for next 24 hours, please take Tylenol for pain as needed, please take augmentin as recommended, wound check in 2 days, suture removal in 10 days. Please come back if your symptoms get worse acutely - My Orders Last 24 Hours: My Active Orders 03/29/17 01:51 Vaccines to be Administered [RC] PER UNIT ROUTINE - Assessment/Plan Last 24 Hours: My Active Orders 03/29/17 01:51 Vaccines to be Administered [RC] PER UNIT ROUTINE
[2017-03-29] MEDS ORDERED: Diphtheria,Pertussis(Acell),Tetanus Vaccine 0.5 ML SDV IM ONE (01:51)
[2017-03-29] MEDS ORDERED: Amoxicillin/Clavulanate K 875-125 MG Tab PO ONE (01:51)
[2017-03-29 02:27] VITALS: BP 107/58
== END 2017-03-29 02:24 | disposition home or self-care (01) ==
LOC: FB.ED 01:24
DX: S61.211A Laceration without foreign body of left index finger without damage to nail, initial encounter (principal); Z88.8 Allergy status to other drugs, medicaments and biological substances; Z91.018 Allergy to other foods; Z79.899 Other long term (current) drug therapy; F17.210 Nicotine dependence, cigarettes, uncomplicated; Z23 Encounter for immunization; W26.0XXA Contact with knife, initial encounter
CPT/HCPCS: 12001; 90471; 90715; 99282; A9270

== ENCOUNTER 2017-11-09 16:41 | Emergency (ER) | payer MEDICAID ==
--- NOTE | 2017-11-09 17:39 | EDM.PDOC ---
ED HPI GENERAL MEDICAL PROBLEM - General Stated Complaint: LUMP ON HER BACK Time Seen by Provider: 11/09/17 16:41 Source of Information: Reports: Patient, Family History Limitations: Reports: No Limitations - History of Present Illness INITIAL COMMENTS - FREE TEXT/NARRATIVE: 37 y.o.w.f came to the ed due to a a lamp at her right lower back for 2-3 weeks. She does not remebter falling or have had any trauma. She noticed other smaller lumps, non of them causing any major discomfort. No N/V/D no dizziness orany other acute medical issues. BP 120/79 RR 15 Pulse ox 98% on RA pulse 95 Temp 36.8 Onset Date: 10/27/17 Onset Time: 06:00 Duration: Week(s):, Constant Location: Reports: Back Quality: Reports: Dull Severity: Mild Improves with: Reports: Rest Worsens with: Reports: Movement Context: Reports: Other (?) Associated Symptoms: Reports: No Other Symptoms lower back Pain Score (Numeric/FACES): 8 - Related Data Allergies Allergy/AdvReac Type Severity Reaction Status Date / Time banana Allergy Nausea and Verified 11/09/17 19:21 Vomiting ibuprofen Allergy Rash Verified 11/09/17 19:21 ketorolac [From Toradol] Allergy Rash Verified 11/09/17 19:21 Home Meds: Home Meds Lurasidone [Latuda] 40 mg PO BEDTIME 05/24/16 [History] QUEtiapine [SEROquel] 100 tab PO BEDTIME 05/24/16 [History] Acetaminophen [Tylenol] 4 tab PO Q4HR PRN 11/30/16 [History] Dextroamphetamine/Amphetamine [Adderall Xr 30 mg Capsule] 30 mg PO BID 11/30/16 [History] Fluticasone Propionate [Flonase] 1 spray DEANA ASDIRECTED 11/30/16 [History] Loratadine [Claritin] 1 tab PO ASDIRECTED 11/30/16 [History] lamoTRIgine [Lamictal] 1 tab PO DAILY 11/30/16 [History] ALPRAZolam [Xanax] 1 mg PO QID 03/29/17 [History] Amoxicillin/Potassium Clav [Augmentin 875-125 Tablet] 1 each PO BID #20 tablet 03/29/17 [Rx] Dextroamphetamine/Amphetamine [Adderall] 30 mg PO 1400 03/29/17 [History] Prazosin [Minpress] 1 mg PO QID 03/29/17 [History] Pregabalin [Lyrica] 150 mg PO TID 03/29/17 [History] Past Medical History HEENT History: Reports: Other (See Below) Other HEENT History: Patient reports taking Claritin and Flonase. Respiratory History: Reports: Other (See Below) Other Respiratory History: Patient reports taking Albuterol. 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 Patient reports taking Gabapentin. Neurological History: Reports: Other (See Below) Psychiatric History: Reports: Other (See Below) Other Psychiatric History: Patient reports taking Adderall, Latuda, and Seroquel. - Infectious Disease History Infectious Disease History: Reports: Chicken Pox - Past Surgical History Musculoskeletal Surgical History: Reports: Other (See Below) Other Musculoskeletal Surgeries/Procedures:: Patient reports having injections to her back and a surgery to repair a broken wrist. Social & Family History - Family History Family Medical History: Noncontributory - Caffeine Use Caffeine Use: Reports: None ED ROS GENERAL - Review of Systems Review Of Systems: See Below Constitutional: Reports: No Symptoms HEENT: Reports: No Symptoms Respiratory: Reports: No Symptoms Cardiovascular: Reports: No Symptoms Endocrine: Reports: No Symptoms GI/Abdominal: Reports: No Symptoms : Reports: No Symptoms Musculoskeletal: Reports: Other (lump left lower back) Skin: Reports: No Symptoms Neurological: Reports: No Symptoms Psychiatric: Reports: No Symptoms Hematologic/Lymphatic: Reports: No Symptoms Immunologic: Reports: No Symptoms ED EXAM, SKIN/RASH Exam: See Below Exam Limited By: No Limitations General Appearance: Alert, WD/WN, Mild Distress Eye Exam: Bilateral Eye: Normal Inspection Ears: Normal External Exam, Normal Canal, Hearing Grossly Normal Nose: Normal Inspection, Normal Mucosa, No Blood Throat/Mouth: Normal Inspection, Normal Lips, Normal Teeth, Normal Gums, Normal Voice, No Airway Compromise Head: Atraumatic, Normocephalic Neck: Normal Inspection, Supple, Non-Tender Respiratory/Chest: No Respiratory Distress, Lungs Clear, Normal Breath Sounds, No Accessory Muscle Use, Chest Non-Tender Cardiovascular: Normal Peripheral Pulses, Regular Rate, Rhythm, No Edema, No Gallop, No Murmur, No Rub Peripheral Pulses: 2+: Radial (L) GI/Abdominal: Normal Bowel Sounds, Soft, Non-Tender, No Organomegaly, No Distention, No Abnormal Bruit, No Mass, Pelvis Stable (Female) Exam: Deferred Rectal (Female) Exam: Deferred Back Exam: Normal Inspection, Full Range of Motion, Other (hematoma 8x8 cme left ) Extremities: Normal Inspection, Normal Range of Motion, Non-Tender, No Pedal Edema Neurological: Alert, Oriented, CN II-XII Intact, Normal Cognition, Normal Gait, No Motor/Sensory Deficits Psychiatric: Normal Affect, Normal Mood Skin: Tattoo(s), Other (lipoma vs hematoma vs cyst right lower back) Location, Skin: Back Lymphatic: No Adenopathy Course - Vital Signs Text/Narrative:: 37 y.o.w.f came to the ed due to a a lamp at her right lower back for 2-3 weeks. She does not remebter falling or have had any trauma. She noticed other smaller lumps, non of them causing any major discomfort. No N/V/D no dizziness orany other acute medical issues. BP 120/79 RR 15 Pulse ox 98% on RA pulse 95 Temp 36.8 PW: Thin WNWD W F with a "LUMP" at her R lower back Imaging: US lower back: Hematoma most likely, official report is pending Impression: Hematoma Tx: Non in the ed Plan: D/C with instructions Last Recorded V/S: Last Vital Signs Temp 36.8 C 11/09/17 17:47 Pulse 80 11/09/17 17:47 Resp 18 11/09/17 17:47 BP 115/78 11/09/17 17:47 Pulse Ox 100 11/09/17 17:47 - Orders/Labs/Meds Orders: Active Orders 24 hr Category Date Time Status Extremity Non Vascular Rt [US] Stat Exams 11/09/17 17:00 Taken Departure - Departure Time of Disposition: 17:40 Disposition: Home, Self-Care 01 Condition: Good Clinical Impression: Hematoma - Discharge Information Instructions: Hematoma, [id number] Referrals: Melquiades Perez MD [Primary Care Provider] - Forms: ED Department Discharge Additional Instructions: Please apply warm heat to affected area, please f/u with your PMD/Surgeon, please come back if your symptoms get worse acutely - My Orders Last 24 Hours: My Active Orders 11/09/17 17:00 Extremity Non Vascular Rt [US] Stat - Assessment/Plan Last 24 Hours: My Active Orders 11/09/17 17:00 Extremity Non Vascular Rt [US] Stat
[2017-11-09 19:41] VITALS: BP 115/78
--- NOTE | 2017-11-10 12:30 | US ---
INDICATION: Hematoma versus cyst versus lipoma. ULTRASOUND EXTREMITY, NONVASCULAR, RIGHT SACROILIAC AREA: Multiple ultrasonic images were obtained in the right sacroiliac area and revealed fluid collections with included areas of dense echogenicity and minimal peripheral blood flow measuring 6 x 0.74 x 6.2 cm. It compresses to some degree. The appearance would be compatible with a hematoma and the patients history but should be correlated clinically. Followup study could be obtained to demonstrate involution. At the level of the posterior mid thorax just to the right of the thoracic spine , there is a smaller collection of similar nature, measuring a maximum of approximately 3.56 x 0.84 x approximately 3.8 cm, again showing only minimal peripheral blood flow and again likely representing hematoma. This could also be followed to involution. [facility]
== END 2017-11-09 17:47 | disposition home or self-care (01) ==
LOC: FB.ED 16:41
DX: S30.0XXA Contusion of lower back and pelvis, initial encounter (principal); Z91.018 Allergy to other foods; Z88.8 Allergy status to other drugs, medicaments and biological substances; Z79.899 Other long term (current) drug therapy; W19.XXXA Unspecified fall, initial encounter
CPT/HCPCS: 76881-RT; 99283